=== PATIENT | male | born 1975 | race Caucasian/White ===

== ENCOUNTER 2018-03-14 09:28 | Emergency (ER) | payer OTHER ==
[2018-03-14] MEDS: LIDOCAINE 1% (MDV) 10 ML INJ INJ (10:16)
[2018-03-14] MEDS: IBUPROFEN 800 MG TAB PO (10:25)
== END 2018-03-14 10:37 | disposition home or self-care (01) ==
LOC: FTE 09:28
DX: L02.214 Cutaneous abscess of groin (principal); I10 Essential (primary) hypertension; F17.210 Nicotine dependence, cigarettes, uncomplicated
CPT/HCPCS: 10060; 99283-25

== ENCOUNTER 2018-09-29 13:02 | Emergency (ER) | payer MEDICAID, OTHER ==
[2018-09-29 15:12] LABS: ADD MAN DIFF? NO
[2018-09-29 15:15] LABS: BASOPHIL # 0.1 10^3/ul (0.0-0.1); BASOPHILS % 0.5 % (0.0-2.0); EOSINOPHILS # 0.3 10^3/ul (0.0-0.5); EOSINOPHILS % 2.3 % (0.0-7.0); HEMATOCRIT 50.2 % (42.0-52.0); LYMPHOCYTES # 3.5 10^3/ul (0.8-2.9); LYMPHOCYTES % 29.5 % (15.0-51.0); MEAN CORPUSCULAR HEMOGLOBIN 29.6 pg (29.0-33.0); MEAN CORPUSCULAR HGB CONC 33.9 g/dl (32.0-37.0); MEAN CORPUSCULAR VOLUME 87.5 fl (82.0-101.0); MEAN PLATELET VOLUME 10.4 fl (7.4-10.4); MONOCYTE # 0.7 10^3/ul (0.3-0.9); MONOCYTES % 6.2 % (0.0-11.0); NEUTROPHIL # 7.3 10^3/ul (1.6-7.5); NEUTROPHILS % 61.1 % (39.0-77.0); PLATELET COUNT 184 10^3/UL (140-415); RED BLOOD COUNT 5.74 10^6/ul (4.70-6.10); RED CELL DISTRIBUTION WIDTH 13.2 % (11.5-14.5)
[2018-09-29 15:33] LABS: D-DIMER 1024.91 ng/ml (<460)
[2018-09-29 15:33] LABS: ANION GAP 12 (5-13); BLOOD UREA NITROGEN 14 mg/dl (7-20); CALCIUM 9.8 mg/dl (8.4-10.2); CARBON DIOXIDE 26 mmol/L (21-31); CHLORIDE 105 mmol/L (97-110); CREATININE 0.79 mg/dl (0.61-1.24); Estimated GFR > 60 mL/min (>60); GLUCOSE 127 mg/dl (70-220); SODIUM 143 mmol/L (135-144)
[2018-09-29 15:45] LABS: TROPONIN-I < 0.012 ng/ml (0.000-0.120)
[2018-09-29] MEDS: ASPIRIN 81 MG TAB PO (17:29)
[2018-09-29] MEDS: NITROGLYCERIN 2% 1 GM OINT PKT TD (17:29)
[2018-09-29] MEDS: IOHEXOL 100 ML (18:41)
[2018-09-29] MEDS: SOD CHLORIDE 0.9% 100 ML (18:41)
[2018-09-29] MEDS ORDERED: NACL 0.9% 3 ML SYG IV (20:00)
[2018-09-29] MEDS ORDERED: OXYCODONE/ACETAMINOPHEN (5/325) TAB PO (20:00)
[2018-09-29 21:17] LABS: CREATINE KINASE 60 IU/L (23-200)
[2018-09-29 21:30] LABS: CK INDEX 0.6; CK-MB 0.38 ng/ml (0.0-2.4); TROPONIN-I < 0.012 ng/ml (0.000-0.120)
== END 2018-09-29 22:05 | disposition home or self-care (01) ==
LOC: E/R 22:05
DX: R07.9 Chest pain, unspecified (principal)
CPT/HCPCS: 36415; 71045; 71275; 80048; 82550; 82553; 84484; 85025; 85378; 93005; 99285-25